=== PATIENT | female | born 1950 | race Caucasian/White ===

== ENCOUNTER 2020-02-25 12:40 | Outpatient (REF) | payer SELFPAY ==
[2020-02-25 13:49] LABS: Cholesterol 171 mg/dL
== END 2020-02-25 12:41 | disposition home or self-care (01) ==
LOC: HO.LNC 12:40
PROVIDERS: Visit Provider Pathology Anatomic Pathology & Clinical Pathology
DX: Z13.89 Encounter for screening for other disorder (principal)
CPT/HCPCS: 82465

== ENCOUNTER 2021-10-16 07:21 | Day surgery (SDC) | payer MEDICARE, SELFPAY ==
[2021-10-10 11:23] VITALS: BMI 27.2
[2021-10-16 07:40] VITALS: BP 166/90; PULSE 64; RESP 18; TEMP 36.6; O2SAT 97
--- NOTE | 2021-10-16 07:57 | P.CONAN_ITS ---
HPI - Anesthesia Eval Consult details Narrative: 71 F for colonoscopy [facility] Past Medical History Medical History Aortic dilatation Arthritis Elevated cholesterol Glucose intolerance HTN (hypertension) Hypothyroid Left anterior hemiblock RBBB (right bundle branch block) Family History Family history of problems with anesthesia: No Surgical History Surgical History H/O colonoscopy History of bunionectomy Hx of cholecystectomy Hx of foot surgery History of Problems with Anesthesia: No Social History Social History Patient Tobacco Use Status: Former Tobacco user Are you DNR?: No Advance Directives: No Advance Directives Information Provided: Yes Advance Directives on File: No Nutrition Risks: No Nutritional Risk Meds Allergies Allergy/AdvReac Type Severity Reaction Status Date / Time bee pollen [BEE STINGS] Allergy Intermediate HIVES Verified 10/16/21 07:42 codeine [CODEINE] Allergy Intermediate HIVES Verified 10/16/21 07:41 LYNDA SEEDS Allergy Intermediate RASH,DISCHARGE Uncoded 10/16/21 07:42 IN EYES Home Medications Medication Instructions Recorded Confirmed Last Taken Type aspirin 81 mg tablet,delayed 81 mg PO DAILY 10/10/21 10/10/21 10/09/21 History release celecoxib 200 mg capsule (Celebrex) 200 mg PO DAILY 10/10/21 10/10/21 Unknown History glucosamine sulf dipot 1 cap PO BID 10/10/21 10/10/21 Unknown History chlr,msm,chond 550 mg-C 30 mg-rakel 1 mg capsule (Glucosamine Chondroitin) levothyroxine 50 mcg tablet 50 mcg PO DAILY 10/10/21 10/10/21 Unknown History metformin 500 mg tablet 500 mg PO DAILY 10/10/21 10/10/21 Unknown History multivitamin 1 tab PO DAILY 10/10/21 10/10/21 Unknown History omeprazole 20 mg capsule,delayed 20 mg PO DAILY 10/10/21 10/10/21 Unknown History release rosuvastatin 5 mg tablet 5 mg PO DAILY 10/10/21 10/10/21 Unknown History zolpidem 6.25 mg tablet,extended 6.25 mg PO BEDTIME 10/10/21 10/10/21 Unknown History release,multiphase (Ambien CR) amlodipine 5 mg tablet 1 tab PO DAILY 10/16/21 10/16/21 Unknown History lisinopril 40 mg tablet 1 tab PO DAILY 10/16/21 10/16/21 10/16/21 History Exam Exam Date and Time: October 16, 2021 0757 Height,Weight and Vital Signs: Height 5 ft 6.25 in Weight 170 lb Last Vital Signs Temp 97.9 F 10/16/21 07:40 Pulse 64 10/16/21 07:40 Resp 18 10/16/21 07:40 BP 166/90 H 10/16/21 07:40 Pulse Ox 97 10/16/21 07:40 O2 Del Method 10/16/21 07:40 Airway Mallampati Class: II TM Dist: >3cm Neck ROM: Full Loose/Missing/Broken Teeth: Yes Assessment and Plan Assessment Anesthesia Assessment: Anesthesia Plan Discussed and Chart Reviewed Final Anesthetic Review Family History of Problems with Anesthesia: No History of Problems with Anesthesia: No NPO: Yes ASA Class: III Final Preanesthetic Review: No Changes in Pt Med Stat, Meds/Allgs Chart Reviewed, Consent Obtained/Reviewed and Anes Risks/Benef Reviewed Patient Risk: Intermediate Procedure Risk: Low Anesthetic Plan Anesthetic Plan: MAC: Disposition: Standard PACU
[2021-10-16 07:58] LABS: Glucose, Whole Blood 108 mg/dL (60-115)
--- NOTE | 2021-10-16 08:17 | MHC.SHP ---
Pre-Procedural Eval Section A Date of Service: 10/16/21 Section B Chief Complaint: screening Details of Present Illness: see H&P no changes Relevant Family History (Specify if Yes): No Relevant Social History: None Present Medications: see Short Stay Collaborative assessment Medical History: No relevant PMH History of Previous Operations: No relevant previous surgery Allergies: Allergies Allergy/AdvReac Type Severity Reaction Status Date / Time bee pollen [BEE STINGS] Allergy Intermediate HIVES Verified 10/16/21 07:42 codeine [CODEINE] Allergy Intermediate HIVES Verified 10/16/21 07:41 LYNDA SEEDS Allergy Intermediate RASH,DISCHARGE Uncoded 10/16/21 07:42 IN EYES Review of Systems Sugical H&P ROS: Negative: Constitution, Cardiovascular, Respiratory, Neurological, Psychiatric, Hem-Onc, Allergic/Immunologic, Gastrointestinal, Genitourinary, Musculoskeletal, Integumentary, Endocrine and Eyes/Ears/Nose/Throat Exam Surgical H&P Exam: Normal: HEENT, Normal: Heart, Normal: Lungs, Normal: Extremities, Normal: Abdomen, Normal: Skin and Normal: Neurological Plan Diagnosis/Plan: Unchanged I have reviewed the history and physical and performed a pertinent physical examination on my patient. No changes have occurred unless specified.
--- NOTE | 2021-10-16 08:21 | PC.NURSE ---
dr. ruiz aware of bbb on ekg strips.
[2021-10-16 09:10] VITALS: BP 89/39; PULSE 48; RESP 16; TEMP 36.3; O2SAT 94
--- NOTE | 2021-10-16 09:11 | P.BOP_ITS ---
Brief Operative Note Date of Service: 10/16/21 Pre-op diagnosis: screening Post-op diagnosis: same Surgeon: Singh Cantor Anesthesia: MAC Was an Customer Experience Leader used for this Procedure?: No Estimated blood loss (mL): 0 Pathology: none sent Condition: stable Disposition: PACU
[2021-10-16 09:25] VITALS: BP 86/53; PULSE 49; RESP 18; O2SAT 94
[2021-10-16 09:35] VITALS: BP 128/52
[2021-10-16 09:40] VITALS: BP 138/65; PULSE 49; RESP 18; TEMP 36.6; O2SAT 98
[2021-10-16 09:55] VITALS: BP 140/65; PULSE 51; RESP 18; TEMP 36.6; O2SAT 98
--- NOTE | 2021-10-16 11:06 | OP_ITS ---
SURGEON: Singh Cantor MD INDICATIONS: Colon cancer screening. PREOPERATIVE DIAGNOSIS: POSTOPERATIVE DIAGNOSIS: PROCEDURE PERFORMED: Colonoscopy to the terminal ileum. ESTIMATED BLOOD LOSS: COMPLICATIONS: ANESTHESIA: ASSISTANTS: Monitored anesthesia care. SPECIMENS: DESCRIPTION OF PROCEDURE: History and physical performed. The risks and benefits of the procedure were explained to the patient. Informed consent was obtained. The patient was placed in the left lateral decubitus position. A digital rectal exam was performed and was found to be normal. The Olympus pediatric videocolonoscope was introduced into the rectum and advanced to the cecum without difficulty. The cecum was identified by transillumination, palpation, and identification of ileocecal valve. Examination was performed. The scope was removed. She tolerated the procedure well and returned to recovery room in stable condition. FINDINGS: The terminal ileum was examined and appeared normal. Abdominal wall pressure was used to assist in advancement of the scope due to looping in the sigmoid. The quality of the prep was good. There were scattered diverticulosis throughout the colon. No polyps were identified. Retroflexed examination showed some hypertrophic anal papillae and mild nonspecific inflammation, probably related to the prep. IMPRESSION: Normal screening colonoscopy. RECOMMENDATIONS: 1. Follow up as needed. 2. Repeat colonoscopy is optional based on age 10 year interval as recommended for average risk individuals. MD HUY Mike/BEVERLY / [id number]
== END 2021-10-16 10:56 | disposition home or self-care (01) ==
PROVIDERS: PCP Internal Medicine Gastroenterology; Visit Provider Internal Medicine Gastroenterology
PROC: 0DJD8ZZ Inspection of Lower Intestinal Tract, Via Natural or Artificial Opening Endoscopic (ICD-10-PCS; CPT 45378; principal; 2021-10-16 08:10)
DX: Z12.11 Encounter for screening for malignant neoplasm of colon (principal); K57.30 Diverticulosis of large intestine without perforation or abscess without bleeding; K62.89 Other specified diseases of anus and rectum; I45.10 Unspecified right bundle-branch block; I77.819 Aortic ectasia, unspecified site; I10 Essential (primary) hypertension; E74.39 Other disorders of intestinal carbohydrate absorption; E03.9 Hypothyroidism, unspecified; E78.00 Pure hypercholesterolemia, unspecified; Z79.82 Long term (current) use of aspirin; Z79.84 Long term (current) use of oral hypoglycemic drugs; Z79.899 Other long term (current) drug therapy; Z90.49 Acquired absence of other specified parts of digestive tract
CPT/HCPCS: G0121; 82947